=== PATIENT | male | born 1980 ===

== ENCOUNTER 2019-10-26 12:14 | Emergency (ER) | payer OTHER ==
--- NOTE | 2019-10-26 14:04 | UC ---
Respiratory Complaint HPI - HPI Summary HPI Summary: She has had 5 days of a mildly productive cough. Some very slight nasal congestion also but no other symptoms. No fevers or chills - History of Current Complaint Chief Complaint: UCGeneralIllness Stated Complaint: URI Time Seen by Provider: 10/26/19 13:58 Hx Obtained From: Patient Onset/Duration: Gradual Onset Timing: Constant Severity Initially: Moderate Severity Currently: Mild Pain Intensity: 0 Character: Cough: Nonproductive Associated Signs And Symptoms: Positive: Negative - Allergies/Home Medications Allergies/Adverse Reactions: Allergies Allergy/AdvReac Type Severity Reaction Status Date / Time Penicillins Allergy Rash Verified 10/26/19 13:23 Home Medications: Home Medications Dabigatran CAP(NF) [Pradaxa CAP(NF)] 150 mg PO BID 10/26/19 [History Confirmed 10/26/19] Enalapril TAB* [Vasotec TAB*] 2.5 mg PO DAILY 10/26/19 [History Confirmed ] Metoprolol Tartrate TAB* [Lopressor TAB*] 100 - 150 mg PO BID 10/26/19 [History Confirmed 10/26/19] guaiFENesin [Guaifenesin] 200 mg PO 10/26/19 [History] PMH/Surg Hx/FS Hx/Imm Hx Cardiovascular History: Cardiac Disease, Hypertension, Pacemaker/ICD - Surgical History Surgical History: Yes Surgery Procedure, Year, and Place: ICD. right leg/knee surgeries s/p fall - age 20 - Social History Alcohol Use: Occasionally Substance Use Type: None Smoking Status (MU): Former Smoker Review of Systems All Other Systems Reviewed And Are Negative: Yes Constitutional: Positive: Negative Respiratory: Positive: Cough Physical Exam - Summary Physical Exam Summary: He is nontoxic in appearance with stable vital signs. Appearance: Well-Appearing Vital Signs: Initial Vital Signs Temp 98.6 F 10/26/19 13:19 Pulse 57 10/26/19 13:19 Resp 14 10/26/19 13:19 BP 126/82 10/26/19 13:19 Pulse Ox 99 10/26/19 13:19 Vital Signs Reviewed: Yes ENT Exam: Normal Neck exam: Normal Respiratory Exam: Normal Cardiovascular Exam: Normal Respiratory Course/Dx - Course Course Of Treatment: This likely a viral bronchitis and I recommended we treat symptomatically with guaifenesin with codeine. - Differential Dx/Diagnosis Provider Diagnosis: Acute bronchitis Discharge ED - Sign-Out/Discharge Documenting (check all that apply): Patient Departure All imaging exams completed and their final reports reviewed: No Studies - Discharge Plan Condition: Stable Disposition: HOME Patient Education Materials: Acute Bronchitis (ED) Referrals: No Primary Care Phys,NOPCP [Primary Care Provider] - [facility] [Outside] - Billing Disposition and Condition Condition: STABLE Disposition: Home
== END 2019-10-26 14:22 | disposition home or self-care (01) ==
LOC: UCEAST 12:14
DX: J20.9 Acute bronchitis, unspecified (principal); R09.81 Nasal congestion; I10 Essential (primary) hypertension; Z88.0 Allergy status to penicillin; Z79.899 Other long term (current) drug therapy; Z95.5 Presence of coronary angioplasty implant and graft
CPT/HCPCS: 99202; G0463